=== PATIENT | male | born 1985 | race Caucasian/White ===

== ENCOUNTER → 2021-12-27 | Outpatient (REF) | payer OTHER ==
[2021-12-27 14:26] LABS: BASO % 0.5 % (0.0-1.0); EOS # 0.3 10^3/uL (0.0-0.5); EOS % 3.8 % (0.0-3.0); HEMATOCRIT 31.2 % (42.0-52.0); HEMOGLOBIN 9.4 g/dl (13.5-17.5); LYMPH # 2.9 10^3/uL (1.5-5.0); LYMPH % 33.2 % (24.0-44.0); MEAN CORPUSCULAR HEMOGLOBIN 25.3 pg (27.0-33.0); MEAN CORPUSCULAR HGB CONC 30.1 g/dl (32.0-36.5); MEAN CORPUSCULAR VOLUME 83.9 fl (80.0-96.0); MONO # 0.7 10^3/uL (0.0-0.8); MONO % 8.4 % (2.0-8.0); NEUTROPHILS # 4.5 10^3/uL (1.5-8.5); NEUTROPHILS % 52.4 % (36.0-66.0); PLATELET COUNT, AUTOMATED 322 10^3/uL (150-450); RED BLOOD COUNT 3.72 10^6/uL (4.30-6.10); WHITE BLOOD COUNT 8.6 10^3/uL (4.0-10.0)
[2021-12-27 14:55] LABS: ERYTHROCYTE SEDIMENTATION RATE 41 mm/hr (0-15)
[2021-12-27 15:10] LABS: BLOOD UREA NITROGEN 12 MG/DL (7-18); CARBON DIOXIDE LEVEL 31 MEQ/L (21-32); CHLORIDE LEVEL 109 MEQ/L (98-107); CREATININE FOR GFR 0.92 MG/DL (0.70-1.30); GLOMERULAR FILTRATION RATE > 60.0 (>60); GLUCOSE, FASTING 90 MG/DL (70-100); POTASSIUM SERUM 4.4 MEQ/L (3.5-5.1); SODIUM LEVEL 141 MEQ/L (136-145)
[2021-12-27 15:11] LABS: ALBUMIN 3.6 GM/DL (3.2-5.2); ALT/SGPT 31 U/L (12-78); BILIRUBIN,TOTAL 0.2 MG/DL (0.2-1.0); CALCIUM LEVEL 9.3 MG/DL (8.5-10.1); TOTAL PROTEIN 6.8 GM/DL (6.4-8.2)
== END ==
LOC: M LAB REF 14:13
PROVIDERS: ATTEND Internal Medicine Infectious Disease
DX: K80.50 Calculus of bile duct without cholangitis or cholecystitis without obstruction (principal); K85.91 Acute pancreatitis with uninfected necrosis, unspecified; Z79.2 Long term (current) use of antibiotics; K91.89 Other postprocedural complications and disorders of digestive system; K85.90 Acute pancreatitis without necrosis or infection, unspecified

== ENCOUNTER → 2022-01-08 | Outpatient (REF) | payer OTHER ==
[2022-01-08 16:25] LABS: ALBUMIN 3.6 GM/DL (3.2-5.2); ALT/SGPT 43 U/L (12-78); BASO % 0.4 % (0.0-1.0); BILIRUBIN,TOTAL 0.4 MG/DL (0.2-1.0); BLOOD UREA NITROGEN 12 MG/DL (7-18); C REACTIVE PROTEIN QUANTITATIV 1.77 MG/DL (0.00-0.30); CALCIUM LEVEL 9.2 MG/DL (8.5-10.1); CARBON DIOXIDE LEVEL 27 MEQ/L (21-32); CHLORIDE LEVEL 107 MEQ/L (98-107); CREATININE FOR GFR 0.69 MG/DL (0.70-1.30); EOS # 0.5 10^3/uL (0.0-0.5); EOS % 6.1 % (0.0-3.0); GLOMERULAR FILTRATION RATE > 60.0 (>60); GLUCOSE, FASTING 105 MG/DL (70-100); HEMATOCRIT 38.4 % (42.0-52.0); HEMOGLOBIN 11.5 g/dl (13.5-17.5); LYMPH # 2.1 10^3/uL (1.5-5.0); LYMPH % 25.3 % (24.0-44.0); MEAN CORPUSCULAR HEMOGLOBIN 25.4 pg (27.0-33.0); MEAN CORPUSCULAR HGB CONC 29.9 g/dl (32.0-36.5); MONO # 0.7 10^3/uL (0.0-0.8); MONO % 8.7 % (2.0-8.0); NEUTROPHILS # 4.8 10^3/uL (1.5-8.5); NEUTROPHILS % 59.1 % (36.0-66.0); PLATELET COUNT, AUTOMATED 317 10^3/uL (150-450); POTASSIUM SERUM 3.7 MEQ/L (3.5-5.1); RED BLOOD COUNT 4.52 10^6/uL (4.30-6.10); SODIUM LEVEL 139 MEQ/L (136-145); TOTAL PROTEIN 7.2 GM/DL (6.4-8.2); WHITE BLOOD COUNT 8.1 10^3/uL (4.0-10.0)
[2022-01-08 17:06] LABS: ERYTHROCYTE SEDIMENTATION RATE 34 mm/hr (0-15)
== END ==
LOC: M LAB REF 15:40
PROVIDERS: ATTEND Internal Medicine Infectious Disease
DX: K80.50 Calculus of bile duct without cholangitis or cholecystitis without obstruction (principal); K85.91 Acute pancreatitis with uninfected necrosis, unspecified; Z79.2 Long term (current) use of antibiotics; K91.89 Other postprocedural complications and disorders of digestive system; K85.90 Acute pancreatitis without necrosis or infection, unspecified

== ENCOUNTER → 2022-01-14 | Outpatient (REF) | payer OTHER ==
[2022-01-14 18:49] LABS: BASO % 0.5 % (0.0-1.0); EOS # 0.4 10^3/uL (0.0-0.5); EOS % 4.8 % (0.0-3.0); HEMATOCRIT 35.9 % (42.0-52.0); LYMPH % 22.9 % (24.0-44.0); MEAN CORPUSCULAR HEMOGLOBIN 26.2 pg (27.0-33.0); MEAN CORPUSCULAR HGB CONC 30.6 g/dl (32.0-36.5); MEAN CORPUSCULAR VOLUME 85.5 fl (80.0-96.0); MONO # 0.5 10^3/uL (0.0-0.8); MONO % 5.8 % (2.0-8.0); NEUTROPHILS # 5.7 10^3/uL (1.5-8.5); NEUTROPHILS % 65.7 % (36.0-66.0); PLATELET COUNT, AUTOMATED 265 10^3/uL (150-450); WHITE BLOOD COUNT 8.6 10^3/uL (4.0-10.0)
[2022-01-14 19:21] LABS: ALBUMIN 3.5 GM/DL (3.2-5.2); ALT/SGPT 43 U/L (12-78); BILIRUBIN,TOTAL 0.3 MG/DL (0.2-1.0); BLOOD UREA NITROGEN 13 MG/DL (7-18); C REACTIVE PROTEIN QUANTITATIV 1.92 MG/DL (0.00-0.30); CALCIUM LEVEL 9.1 MG/DL (8.5-10.1); CARBON DIOXIDE LEVEL 29 MEQ/L (21-32); CHLORIDE LEVEL 108 MEQ/L (98-107); CREATININE FOR GFR 0.84 MG/DL (0.70-1.30); GLOMERULAR FILTRATION RATE > 60.0 (>60); GLUCOSE, FASTING 133 MG/DL (70-100); POTASSIUM SERUM 3.6 MEQ/L (3.5-5.1); SODIUM LEVEL 142 MEQ/L (136-145); TOTAL PROTEIN 7.2 GM/DL (6.4-8.2)
[2022-01-14 19:56] LABS: ERYTHROCYTE SEDIMENTATION RATE 22 mm/hr (0-15)
== END ==
LOC: M LAB REF 15:58
PROVIDERS: ATTEND Internal Medicine Infectious Disease
DX: K80.50 Calculus of bile duct without cholangitis or cholecystitis without obstruction (principal); K85.91 Acute pancreatitis with uninfected necrosis, unspecified; Z79.2 Long term (current) use of antibiotics; K91.89 Other postprocedural complications and disorders of digestive system; K85.90 Acute pancreatitis without necrosis or infection, unspecified

== ENCOUNTER → 2022-03-27 | Outpatient (CLI) | payer OTHER | LOC: M CARPUL 15:02 | PROVIDERS: ATTEND Physician Assistant | DX: R06.02 Shortness of breath (principal); J45.30 Mild persistent asthma, uncomplicated ==

== ENCOUNTER 2023-02-02 13:56 | Emergency (ER) | payer OTHER ==
[~2023-02-02] VITALS: Ht 170.2 cm; Wt 88.5 kg
[2023-02-02] MEDS ORDERED: ONDANSETRON 4MG 2ML VIAL IV ONE (14:45)
[2023-02-02] MEDS ORDERED: NS 1,000 ML IV ONE (14:45)
[2023-02-02 15:34] LABS: BASO % 0.2 % (0.0-1.0); EOS # 0.1 10^3/uL (0.0-0.5); EOS % 0.6 % (0.0-3.0); HEMATOCRIT 44.3 % (42.0-52.0); HEMOGLOBIN 15.1 g/dl (13.5-17.5); LYMPH # 1.3 10^3/uL (1.5-5.0); LYMPH % 6.8 % (24.0-44.0); MEAN CORPUSCULAR HEMOGLOBIN 28.6 pg (27.0-33.0); MEAN CORPUSCULAR HGB CONC 34.1 g/dl (32.0-36.5); MEAN CORPUSCULAR VOLUME 83.9 fl (80.0-96.0); MONO # 1.3 10^3/uL (0.0-0.8); MONO % 6.7 % (2.0-8.0); NEUTROPHILS # 16.3 10^3/uL (1.5-8.5); NEUTROPHILS % 85.3 % (36.0-66.0); PLATELET COUNT, AUTOMATED 240 10^3/uL (150-450); RED BLOOD COUNT 5.28 10^6/uL (4.30-6.10); WHITE BLOOD COUNT 19.1 10^3/uL (4.0-10.0)
[2023-02-02] MEDS ORDERED: MORPHINE 4 MG/ML 1ML VIAL IV ONE (15:40)
[2023-02-02] MEDS ORDERED: ISOVUE-370 76% 100ML VIAL As Ordered ONE (15:43)
[2023-02-02 16:02] LABS: ALBUMIN 4.2 G/DL (3.2-5.2); BILIRUBIN,TOTAL 2.1 MG/DL (0.3-1.2); TOTAL PROTEIN 7.2 G/DL (5.7-8.2)
[2023-02-02 16:04] LABS: RSV AMPLIFICATION NEGATIVE (NEGATIVE)
[2023-02-02] MEDS ORDERED: KETOROLAC 30 MG/ML 1ML VIAL IV ONE (16:45)
[2023-02-02] MEDS: HYDROMORPHONE HCL 0.5 MG/ 0.5 ML SYRINGE IV PRN ×2 (18:10→19:09)
[2023-02-02] MEDS ORDERED: METOCLOPRAMIDE INJ 10MG/2ML VIAL IV ONE (19:50)
[2023-02-02] MEDS ORDERED: PIPERACILLIN/TAZOBACTAM SOD 3.375 GM in D5W MINI-BAG PLUS 50 ML IV ONE (20:05)
[2023-02-02] MEDS ORDERED: PROMETHAZINE 25MG/ML 1ML VIAL IV ONE (21:40)
[2023-02-02 22:06] VITALS: BP 136/68
== END 2023-02-02 22:09 | disposition short-term general hospital (02) ==
LOC: M ED 13:56
DX: R10.9 Unspecified abdominal pain (principal); K83.8 Other specified diseases of biliary tract; E80.7 Disorder of bilirubin metabolism, unspecified; M54.9 Dorsalgia, unspecified; F12.90 Cannabis use, unspecified, uncomplicated
CPT/HCPCS: 74177; 80047; 80076; 81001; 83605; 83690; 85025; 87040; 87631; 96365; 96367; 96375; 99284; J1170; J1885; J2405; J2543; J2550; J2765; Q9967

== ENCOUNTER → 2023-02-12 | Outpatient (REF) | payer OTHER ==
[2023-02-12 18:07] LABS: BASO # 0.1 10^3/uL (0.0-0.2); BASO % 0.8 % (0.0-1.0); EOS # 0.1 10^3/uL (0.0-0.5); EOS % 2.2 % (0.0-3.0); HEMATOCRIT 44.9 % (42.0-52.0); HEMOGLOBIN 14.6 g/dl (13.5-17.5); LYMPH # 2.2 10^3/uL (1.5-5.0); LYMPH % 36.5 % (24.0-44.0); MEAN CORPUSCULAR HEMOGLOBIN 27.8 pg (27.0-33.0); MEAN CORPUSCULAR HGB CONC 32.5 g/dl (32.0-36.5); MEAN CORPUSCULAR VOLUME 85.5 fl (80.0-96.0); MONO # 0.7 10^3/uL (0.0-0.8); MONO % 11.2 % (2.0-8.0); NEUTROPHILS # 2.9 10^3/uL (1.5-8.5); NEUTROPHILS % 48.6 % (36.0-66.0); PLATELET COUNT, AUTOMATED 336 10^3/uL (150-450); RED BLOOD COUNT 5.25 10^6/uL (4.30-6.10); WHITE BLOOD COUNT 5.9 10^3/uL (4.0-10.0)
[2023-02-12 18:38] LABS: ALKALINE PHOSPHATASE 90 U/L (46-116); ALT/SGPT 78 U/L (7.0-40); AST/SGOT 30 U/L (<34); BILIRUBIN,TOTAL 0.9 MG/DL (0.3-1.2); BLOOD UREA NITROGEN 15 MG/DL (9-23); CALCIUM LEVEL 9.2 MG/DL (8.5-10.1); CARBON DIOXIDE LEVEL 26 MMOL/L (20-31); CHLORIDE LEVEL 104 MMOL/L (98-107); CREATININE FOR GFR 0.76 MG/DL (0.70-1.30); GLOMERULAR FILTRATION RATE > 60.0 (>60); GLUCOSE, FASTING 92 MG/DL (60-100); POTASSIUM SERUM 4.8 MMOL/L (3.5-5.1); SODIUM LEVEL 138 MMOL/L (136-145)
== END ==
LOC: M SFHCCLAY 10:26
PROVIDERS: ATTEND Nurse Practitioner Family
DX: K83.09 Other cholangitis (principal)

== ENCOUNTER → 2023-04-07 | Outpatient (REF) | payer OTHER ==
[2023-04-07 17:13] LABS: BASO # 0.1 10^3/uL (0.0-0.2); BASO % 0.7 % (0.0-1.0); EOS # 0.3 10^3/uL (0.0-0.5); EOS % 4.1 % (0.0-3.0); HEMATOCRIT 41.2 % (42.0-52.0); LYMPH # 2.8 10^3/uL (1.5-5.0); LYMPH % 34.6 % (24.0-44.0); MEAN CORPUSCULAR HEMOGLOBIN 28.2 pg (27.0-33.0); MEAN CORPUSCULAR VOLUME 83.1 fl (80.0-96.0); MONO # 0.7 10^3/uL (0.0-0.8); MONO % 9.1 % (2.0-8.0); NEUTROPHILS # 4.2 10^3/uL (1.5-8.5); NEUTROPHILS % 51.1 % (36.0-66.0); PLATELET COUNT, AUTOMATED 243 10^3/uL (150-450); RED BLOOD COUNT 4.96 10^6/uL (4.30-6.10); WHITE BLOOD COUNT 8.1 10^3/uL (4.0-10.0)
[2023-04-07 17:40] LABS: ALBUMIN 4.3 G/DL (3.2-5.2); ALKALINE PHOSPHATASE 66 U/L (46-116); ALT/SGPT 36 U/L (7.0-40); AST/SGOT 20 U/L (<34); BILIRUBIN,TOTAL 0.9 MG/DL (0.3-1.2); BLOOD UREA NITROGEN 19 MG/DL (9-23); CALCIUM LEVEL 9.4 MG/DL (8.5-10.1); CARBON DIOXIDE LEVEL 25 MMOL/L (20-31); CHLORIDE LEVEL 104 MMOL/L (98-107); CREATININE FOR GFR 0.87 MG/DL (0.70-1.30); GLOMERULAR FILTRATION RATE > 60.0 (>60); GLUCOSE, FASTING 80 MG/DL (60-100); POTASSIUM SERUM 3.8 MMOL/L (3.5-5.1); SODIUM LEVEL 138 MMOL/L (136-145); TOTAL PROTEIN 7.1 G/DL (5.7-8.2)
== END ==
LOC: M SFHCCLAY 15:02
PROVIDERS: ATTEND Physician Assistant Medical
DX: J45.901 Unspecified asthma with (acute) exacerbation (principal); M25.521 Pain in right elbow